=== PATIENT | female | born 1990 | race Asian ===

== ENCOUNTER 2018-12-20 10:04 | Day surgery (SDC) | payer BC ==
[2018-12-20] MEDS ORDERED: LIDOCAINE 4% SOLUTION 50 ML BTL (11:08)
[2018-12-20] MEDS ORDERED: MIDAZOLAM 1 MG/ML 2 ML INJ ×2 (12:06→12:07)
[2018-12-20] MEDS ORDERED: FENTAnyl 50 MCG/ML VIAL (12:07)
== END 2018-12-20 15:31 | disposition home or self-care (01) ==
LOC: GIL 10:04
DX: K29.50 Unspecified chronic gastritis without bleeding (principal)
CPT/HCPCS: 43239; 84703; 88305; 88312